=== PATIENT | female | born 1985 | race African-American/Black ===

== ENCOUNTER 2019-03-21 18:39 | Emergency (ER) | payer SELFPAY ==
[~2019-03-21] VITALS: Ht 167.6 cm; Wt 79.0 kg
[2019-03-21] MEDS ORDERED: IBUPROFEN 600MG TABLET PO ONE (19:45)
[2019-03-21 21:48] VITALS: BP 114/73
== END 2019-03-21 21:49 | disposition home or self-care (01) ==
LOC: ER 18:39
DX: J02.9 Acute pharyngitis, unspecified (principal); H92.02 Otalgia, left ear; F12.10 Cannabis abuse, uncomplicated; F17.200 Nicotine dependence, unspecified, uncomplicated; Z98.890 Other specified postprocedural states; Z88.8 Allergy status to other drugs, medicaments and biological substances
CPT/HCPCS: 87070; 87430; 99283

== ENCOUNTER 2019-06-02 20:23 | Emergency (ER) | payer MEDICAID ==
[~2019-06-02] VITALS: Ht 167.6 cm; Wt 75.0 kg
[2019-06-02] MEDS ORDERED: IBUPROFEN 600MG TABLET PO STA (21:45)
[2019-06-02 23:00] VITALS: BP 123/60
== END 2019-06-02 23:00 | disposition home or self-care (01) ==
LOC: ER 20:23
DX: S93.491A Sprain of other ligament of right ankle, initial encounter (principal); F17.200 Nicotine dependence, unspecified, uncomplicated; F12.10 Cannabis abuse, uncomplicated; X37.1XXA Tornado, initial encounter; Y93.89 Activity, other specified; Y92.89 Other specified places as the place of occurrence of the external cause; Y99.8 Other external cause status; Z88.8 Allergy status to other drugs, medicaments and biological substances; Z98.890 Other specified postprocedural states
CPT/HCPCS: 73610; 73630; 81025; 99283

== ENCOUNTER 2019-06-11 18:03 | Emergency (ER) | payer MEDICAID ==
[~2019-06-11] VITALS: Ht 167.6 cm; Wt 71.0 kg
[2019-06-11 18:19] VITALS: BP 96/75
== END 2019-06-11 18:13 | disposition home or self-care (01) ==
LOC: ER 18:03
DX: M25.571 Pain in right ankle and joints of right foot (principal); F12.10 Cannabis abuse, uncomplicated; F17.210 Nicotine dependence, cigarettes, uncomplicated
CPT/HCPCS: 99283; 99406

== ENCOUNTER 2019-06-30 08:00 | Emergency (ER) | payer MEDICAID ==
[~2019-06-30] VITALS: Ht 167.6 cm; Wt 70.0 kg
[2019-06-30 08:18] VITALS: BP 111/67
== END 2019-06-30 08:53 | disposition home or self-care (01) ==
LOC: ER 08:00
DX: M25.571 Pain in right ankle and joints of right foot (principal); Z88.8 Allergy status to other drugs, medicaments and biological substances; Z98.890 Other specified postprocedural states
CPT/HCPCS: 99281; Z7610